=== PATIENT | male | born 1980 | race Caucasian/White ===

== ENCOUNTER 2021-05-28 09:41 | Inpatient (IN) ==
[2021-05-28 10:57] LABS: Mean Corpuscular Volume 73.4 fL (83.0-100.0); Red Cell Distribution Width 19.8 % (11.5-14.5)
[2021-05-28 10:59] LABS: Hematocrit 20.1 % (37.5-50.1); Mean Corpuscular HGB Conc 25.4 g/dL (31.6-35.5); Mean Corpuscular Hemoglobin 18.6 pg (28.0-33.3); Nucleated Red Blood Cells 0.9 /100 WBC (0); Red Blood Count 2.74 M/mcL (4.19-5.50); White Blood Count 3.5 K/mcL (4.3-11.1)
[2021-05-28 11:06] LABS: INR 1.1; Prothrombin Time 12.1 Seconds (9.4-12.1)
[2021-05-28 11:07] LABS: Immature Platelets 8.9 % (1.1-6.1); Immature Reticulocyte % 34.9 % (11.0-38.0); Platelet Count 191 K/mcL (140-400); Reticulocyte % 3.7 % (1.6-2.8)
[2021-05-28 11:09] LABS: Activated Partial Thrombo Time 24.3 Seconds (26.0-36.0)
[2021-05-28 11:11] LABS: Hemoglobin 5.1 g/dL (12.9-16.9)
[2021-05-28 11:41] LABS: Folate 15.9 ng/mL (3.0-16.0)
[2021-05-28] MEDS ORDERED: Naloxone 0.4 MG/ML INJ IVP PRN (11:45)
[2021-05-28] MEDS ORDERED: Melatonin 3 MG TABLET PO PRN (11:45)
[2021-05-28 12:09] LABS: Anisocytosis 1+ (Not Present); Eosinophils # 0.2 K/mcL (0.0-0.6); Hypochromasia Present (Not Present); Lymphocytes # 0.7 K/mcL (0.6-4.6); Monocytes # 0.4 K/mcL (0.0-1.3); Neutrophils # 2.3 K/mcL (1.6-8.9); Platelet Estimate Normal (Normal); Poikilocytosis 1+ (Not Present); Polychromasia 1+ (Not Present)
[2021-05-28 12:25] LABS: BUN/Creatinine Ratio 15 (6-26); Bilirubin,Direct 0.1 mg/dL (0.0-0.2); Bilirubin,Indirect 0.4 mg/dL (0.0-1.0); Bilirubin,Total 0.5 mg/dL (0.3-1.0); Blood Urea Nitrogen 10 mg/dL (6-20); Calcium 8.4 mg/dL (8.6-10.3); Carbon Dioxide 24 mEq/L (23-29); Chloride 107 mEq/L (98-107); Ferritin < 8 ng/mL (20-250); Glucose 112 mg/dL (70-105); Iron < 10 mcg/dL (65-175); Lactate Dehydrogenase 127 Units/L (140-271); Osmolality,Calculated 288 (280-300); Potassium 3.8 mEq/L (3.5-5.1); Sodium 139 mEq/L (136-145); Transferrin 350 mg/dL (203-362); Troponin I < 0.03 ng/mL (< 0.04); eGFR For African Americans > 60 (> 60); eGFR For Non-African Americans > 60 (> 60)
[2021-05-28 12:50] LABS: Bilirubin,Urine Negative (Negative); Blood,Urine Negative (Negative); Clarity,Urine Clear (Clear); Color,Urine Yellow (Yellow); Glucose,Urine (UA) Normal (Normal); Ketones,Urine Negative (Negative); Leukocyte Esterase,Urine Negative (Negative); Mucus,Urine Few per lpf (None-Few); Nitrite,Urine Negative (Negative); Protein,Urine 30 mg/dL (Neg-Trace); RBC,Urine 0-3 per hpf (0-3); Specific Gravity,Urine 1.026 (1.010-1.025); Squamous Epithelial Cell,Urine Few per hpf (None-Few); Urobilinogen,Urine Normal (Normal); WBC,Urine 0-3 per hpf (0-3)
[2021-05-28 15:58] LABS: Influenza A PCR Negative (Negative); Influenza B PCR Negative (Negative); Resp. Syncytial Virus PCR Negative (Negative)
[2021-05-28 16:04] LABS: SARS-CoV-2 by PCR (In House) Positive (Negative)
[2021-05-28] MEDS ORDERED: 0.9 % Sodium Chloride 250 ML ONE ×2 (16:17→22:29)
[2021-05-28 16:56] LABS: Hematocrit 20.4 % (37.5-50.1)
[2021-05-28 16:58] LABS: Hemoglobin 5.5 g/dL (12.9-16.9)
[2021-05-28] MEDS: Cyanocobalamin (B-12) 1,000 MCG/ML VIAL SQ SCH (17:36)
[2021-05-28 22:06] LABS: Hematocrit 22.5 % (37.5-50.1); Hemoglobin 6.3 g/dL (12.9-16.9)
[2021-05-29 03:51] LABS: Eosinophils % 2.1 %
[2021-05-29 03:52] LABS: Basophils % 0.4 %; Eosinophils # 0.1 K/mcL (0.0-0.6); Hematocrit 24.2 % (37.5-50.1); Hemoglobin 6.9 g/dL (12.9-16.9); Immature Granulocytes % 1.7 % (0-4); Immature Platelets 6.8 % (1.1-6.1); Lymphocytes % 18.7 %; Mean Corpuscular HGB Conc 28.5 g/dL (31.6-35.5); Mean Corpuscular Hemoglobin 21.9 pg (28.0-33.3); Mean Corpuscular Volume 76.8 fL (83.0-100.0); Mean Platelet Volume 10.8 fL (9.4-12.4); Monocytes # 0.5 K/mcL (0.0-1.3); Neutrophils # 3.6 K/mcL (1.6-8.9); Nucleated Red Blood Cells 1.9 /100 WBC (0); Platelet Count 190 K/mcL (140-400); Red Blood Count 3.15 M/mcL (4.19-5.50); Red Cell Distribution Width 21.2 % (11.5-14.5); Segmented Neutrophils % 67.1 %; White Blood Count 5.3 K/mcL (4.3-11.1)
[2021-05-29 04:12] LABS: Anisocytosis 1+ (Not Present); Hypochromasia Present (Not Present); Platelet Estimate Normal (Normal); Poikilocytosis 1+ (Not Present); Polychromasia 1+ (Not Present)
[2021-05-29 04:14] LABS: Alanine Aminotransferase 18 Units/L (7-52); Albumin 3.7 g/dL (3.5-5.7); Albumin/Globulin Ratio 1.7 (1.1-2.2); Alkaline Phosphatase 59 Units/L (34-104); Aspartate Amino Transferase 17 Units/L (13-39); BUN/Creatinine Ratio 19 (6-26); Bilirubin,Total 0.5 mg/dL (0.3-1.0); Blood Urea Nitrogen 12 mg/dL (6-20); Calcium 8.1 mg/dL (8.6-10.3); Carbon Dioxide 24 mEq/L (23-29); Chloride 109 mEq/L (98-107); Globulin 2.2 g/dL (2.4-3.5); Glucose 98 mg/dL (70-105); Magnesium 2.1 mg/dL (1.6-2.6); Osmolality,Calculated 282 (280-300); Potassium 4.1 mEq/L (3.5-5.1); Sodium 136 mEq/L (136-145); Total Protein 5.9 g/dL (6.4-8.9); eGFR For African Americans > 60 (> 60); eGFR For Non-African Americans > 60 (> 60)
[2021-05-29] MEDS: Cyanocobalamin (B-12) 1,000 MCG/ML VIAL SQ SCH (08:50)
[2021-05-29] MEDS ORDERED: 0.9 % Sodium Chloride 250 ML ONE (10:16)
[2021-05-29] MEDS ORDERED: *HR* Propofol 200 MG/20 ML VIAL IVP ONE (14:18)
[2021-05-29] MEDS ORDERED: Lidocaine -MPF 2% 5 ML VIAL ONE (14:18)
[2021-05-30 04:53] LABS: BUN/Creatinine Ratio 12 (6-26); Blood Urea Nitrogen 9 mg/dL (6-20); Calcium 8.4 mg/dL (8.6-10.3); Carbon Dioxide 25 mEq/L (23-29); Chloride 106 mEq/L (98-107); Glucose 97 mg/dL (70-105); Osmolality,Calculated 285 (280-300); Potassium 4.1 mEq/L (3.5-5.1); Sodium 138 mEq/L (136-145); eGFR For African Americans > 60 (> 60); eGFR For Non-African Americans > 60 (> 60)
[2021-05-30 04:56] LABS: Mean Corpuscular Volume 79.1 fL (83.0-100.0); Nucleated Red Blood Cells 0.7 /100 WBC (0)
[2021-05-30 04:58] LABS: Basophils % 0.5 %; Eosinophils # 0.2 K/mcL (0.0-0.6); Eosinophils % 2.4 %; Hematocrit 29.5 % (37.5-50.1); Hemoglobin 8.4 g/dL (12.9-16.9); Immature Granulocytes % 1.2 % (0-4); Immature Platelets 10.6 % (1.1-6.1); Lymphocytes # 1.2 K/mcL (0.6-4.6); Lymphocytes % 15.8 %; Mean Corpuscular HGB Conc 28.5 g/dL (31.6-35.5); Mean Corpuscular Hemoglobin 22.5 pg (28.0-33.3); Monocytes # 0.6 K/mcL (0.0-1.3); Monocytes % 7.6 %; Neutrophils # 5.5 K/mcL (1.6-8.9); Platelet Count 221 K/mcL (140-400); Red Blood Count 3.73 M/mcL (4.19-5.50); Red Cell Distribution Width 22.2 % (11.5-14.5); Segmented Neutrophils % 72.5 %; White Blood Count 7.6 K/mcL (4.3-11.1)
[2021-05-30 06:48] LABS: Large Platelets Present (Not Present); Platelet Estimate Normal (Normal)
[2021-05-30] MEDS: Cyanocobalamin (B-12) 1,000 MCG/ML VIAL SQ SCH (08:31)
[2021-05-30 10:59] VITALS: BP 125/69; PULSE 80; TEMP 98.3; O2SAT 98
[2021-06-01 13:01] LABS: PNH Monocytes Percent 0.002 % (0.000-0.019)
[2021-06-01 13:20] LABS: PNH PMNs Percent 0.003 % (0.000-0.004); Tissue Transglutaminase IgA <2 U/mL (0-3)
== END 2021-05-30 12:18 | disposition home or self-care (01) | DRG 811 ==
LOC: 2ANU 09:41 → EMEROOARM 09:41 → 2ANU 13:50
PROVIDERS: ADMIT Internal Medicine; ATTEND Internal Medicine